=== PATIENT | female | born 1985 | race Caucasian/White ===

== ENCOUNTER 2017-07-28 16:55 | Emergency (ER) | payer OTHER ==
[~2017-07-28 16:55] MED LIST: MAGN100T PO; MELA3TAB14 PO; ONDA4TAB PO; ONDA4TAB97 PO; PROM-110 PO
--- NOTE | 2017-07-28 17:07 | ER Report ---
History and Physical Time Seen By MD: 17:07 Hx. of Stated Complaint: patient has been sick since yesterday with N/V; patient states she took some zofran and it did not help HPI/ROS chief concern: nausea/vomiting HPI: 31 y/o female presents with concern of nausea/vomiting and diarrhea x2 days. Reports she initially experienced nausea and diarrhea yesterday and overnight, followed by vomiting accompanied by diarrhea today. Reports limited fluid intake. Reports chills/sweats, body aches. Denies recent travel or eating new foods/new restaurants. Review of Systems: HENT: Denies nasal congestion, drainage Respiratory: Denies shortness of breath, dyspnea, cough CV: Denies chest pain, palpitations GI: Reports nausea, vomiting, diarrhea. Denies hematemesis, hematochezia, melena , mucus. Allergies: Coded Allergies: acetaminophen (Verified Allergy, Mild, "makes me sick", 07/14/15) hydrocodone (Verified Allergy, Mild, "makes me sick", 07/14/15) Uncoded Allergies: nipetiphine (Allergy, Mild, hives, 07/14/15) Home Meds Active Scripts Promethazine Hcl (PROMETHAZINE HCL) 25 Mg Tablet, 25 MG PO Q8H Y for NAUSEA/ VOMITING, #12 TAB Prov:JAZLYN VAZ [facility] [place] 07/28/17 Ondansetron (ZOFRAN ODT) 4 Mg Tab.rapdis, 4 MG PO Q6H Y for NAUSEA/VOMITING, # 20 TAB.MICKEY Prov:JAZLYN VAZ [facility] [place] 04/04/16 Reported Medications Melatonin (MELATONIN) 3 Mg Tab.rapdis, MG PO QHS 04/04/16 Discontinued Reported Medications Magnesium Amino Acid Chelate (MAGNESIUM) 100 Mg Tablet, 120 MG PO QDAY 04/04/16 Past Medical/Surgical History History of left ankle fracture; Reviewed Nurses Notes: Yes Old Medical Records Reviewed: No Hx Smoking: No Smoking Status: Never Smoker Hx Substance Use Disorder: No Constitutional Vital Sign - Last 24 Hours 07/28/17 07/28/17 07/28/17 07/28/17 17:00 17:01 17:25 17:30 Temp 99.8 Pulse 81 80 Resp 18 B/P (MAP) 125/77 (93) 125/77 106/63 (77) Pulse Ox 96 92 O2 Delivery Room Air 07/28/17 07/28/17 07/28/17 07/28/17 18:07 18:25 18:30 18:45 Pulse 74 70 74 B/P (MAP) 131/79 (96) 129/78 (95) Pulse Ox 97 97 96 07/28/17 07/28/17 07/28/17 07/28/17 19:00 19:15 19:30 19:45 Pulse 71 73 77 77 B/P (MAP) 113/75 (88) 115/65 (82) Pulse Ox 95 95 96 97 07/28/17 20:00 Pulse 75 B/P (MAP) 123/72 (89) Pulse Ox 96 Intake and Output 07/28/17 07/28/17 07/29/17 15:00 23:00 07:00 Intake Total 1000 ml Balance 1000 ml Physical Exam Physical Exam: General: Alert, orientedx3, in discomfort during exam, no acute respiratory distress. HENT: TMs pearly mckay, no bulging or fluid; canals clear with no erythema. Posterior pharynx pink. No lymphadenopathy Respiratory: clear to auscultation bilaterally. CV: regular rate and rhythm GI: bowel sounds normoactive all quadrants. Scattered tympany/dullness to percussion. Mild, diffuse tenderness to palpation. No hepatosplenomegaly. After obtaining thorough HPI and ROS, the following differentials were considered: viral gastroenteritis, dehydration, , intestinal obstruction. Medical Decision Making Data Points Result Diagram: 07/28/17 1727 07/28/17 1727 Laboratory Hematology Test 07/28/17 17:27 07/28/17 18:09 Red Blood Count 4.95 M/uL (4.17-5.56) Mean Corpuscular Volume 87.3 fL (80.0-96.0) Mean Corpuscular Hemoglobin 29.7 pg (26.0-33.0) Mean Corpuscular Hemoglobin Concent 34.0 g/dL (32.0-36.0) Red Cell Distribution Width 14.3 % (11.5-14.5) Mean Platelet Volume 9.3 fL (7.2-11.1) Neutrophils (%) (Auto) 79.4 % (39.4-72.5) Lymphocytes (%) (Auto) 10.0 % (17.6-49.6) Monocytes (%) (Auto) 9.9 % (4.1-12.4) Eosinophils (%) (Auto) 0.3 % (0.4-6.7) Basophils (%) (Auto) 0.4 % (0.3-1.4) Nucleated RBC Relative Count (auto) 0.1 /100WBC Neutrophils # (Auto) 6.8 K/uL (2.0-7.4) Lymphocytes # (Auto) 0.9 K/uL (1.3-3.6) Monocytes # (Auto) 0.9 K/uL (0.3-1.0) Eosinophils # (Auto) 0.0 K/uL (0.0-0.5) Basophils # (Auto) 0.0 K/uL (0.0-0.1) Nucleated RBC Absolute Count (auto) 0.01 K/uL Sodium Level 138 mmol/L (137-145) Potassium Level 4.1 mmol/L (3.5-5.0) Chloride Level 105 mmol/L (98-107) Carbon Dioxide Level 19 mmol/L (22-31) Blood Urea Nitrogen 12 mg/dl (7-18) Creatinine 0.90 mg/dl (0.52-1.04) Glomerular Filtration Rate Calc > 60.0 Random Glucose 91 mg/dl (75-110) Calcium Level 9.3 mg/dl (8.4-10.2) Total Bilirubin 0.4 mg/dl (0.2-1.3) Aspartate Amino Transf (AST/SGOT) 29 U/L (0-35) Alanine Aminotransferase (ALT/SGPT) 39 U/L (0-56) Alkaline Phosphatase 53 U/L (0-126) Total Protein 7.7 gm/dl (6.3-8.2) Albumin 4.3 g/dl (3.5-5.0) Amylase Level 68 U/L (0-110) Lipase 85 U/L (23-300) Urine Color Yellow Urine Clarity Clear Urine pH 5.0 pH (4.8-9.5) Urine Specific [place] 1.027 Urine Protein Negative mg/dL (NEGATIVE) Urine Glucose (UA) Negative mg/dL (NEGATIVE) Urine Ketones Trace mg/dL (NEGATIVE) Urine Blood Negative (NEGATIVE) Urine Nitrite Negative (NEGATIVE) Urine Bilirubin Negative (NEGATIVE) Urine Urobilinogen Negative mg/dL (0.2-1.9) Urine Leukocyte Esterase Negative (NEGATIVE) Urine RBC None /HPF (0-2/HPF) Urine WBC 1 /HPF (0-5/HPF) Urine Squamous Epithelial Cells Many /LPF (</=FEW) Urine Bacteria Negative /HPF (NONE-FEW) Urine Mucus Few /HPF (NONE-FEW) Chemistry Test 07/28/17 17:27 07/28/17 18:09 White Blood Count 8.6 k/uL (4.5-11.0) Red Blood Count 4.95 M/uL (4.17-5.56) Hemoglobin 14.7 g/dL (12.0-16.0) Hematocrit 43.2 % (34.0-47.0) Mean Corpuscular Volume 87.3 fL (80.0-96.0) Mean Corpuscular Hemoglobin 29.7 pg (26.0-33.0) Mean Corpuscular Hemoglobin Concent 34.0 g/dL (32.0-36.0) Red Cell Distribution Width 14.3 % (11.5-14.5) Platelet Count 213 K/uL (150-450) Mean Platelet Volume 9.3 fL (7.2-11.1) Neutrophils (%) (Auto) 79.4 % (39.4-72.5) Lymphocytes (%) (Auto) 10.0 % (17.6-49.6) Monocytes (%) (Auto) 9.9 % (4.1-12.4) Eosinophils (%) (Auto) 0.3 % (0.4-6.7) Basophils (%) (Auto) 0.4 % (0.3-1.4) Nucleated RBC Relative Count (auto) 0.1 /100WBC Neutrophils # (Auto) 6.8 K/uL (2.0-7.4) Lymphocytes # (Auto) 0.9 K/uL (1.3-3.6) Monocytes # (Auto) 0.9 K/uL (0.3-1.0) Eosinophils # (Auto) 0.0 K/uL (0.0-0.5) Basophils # (Auto) 0.0 K/uL (0.0-0.1) Nucleated RBC Absolute Count (auto) 0.01 K/uL Glomerular Filtration Rate Calc > 60.0 Calcium Level 9.3 mg/dl (8.4-10.2) Total Bilirubin 0.4 mg/dl (0.2-1.3) Aspartate Amino Transf (AST/SGOT) 29 U/L (0-35) Alanine Aminotransferase (ALT/SGPT) 39 U/L (0-56) Alkaline Phosphatase 53 U/L (0-126) Total Protein 7.7 gm/dl (6.3-8.2) Albumin 4.3 g/dl (3.5-5.0) Amylase Level 68 U/L (0-110) Lipase 85 U/L (23-300) Urine Color Yellow Urine Clarity Clear Urine pH 5.0 pH (4.8-9.5) Urine Specific [place] 1.027 Urine Protein Negative mg/dL (NEGATIVE) Urine Glucose (UA) Negative mg/dL (NEGATIVE) Urine Ketones Trace mg/dL (NEGATIVE) Urine Blood Negative (NEGATIVE) Urine Nitrite Negative (NEGATIVE) Urine Bilirubin Negative (NEGATIVE) Urine Urobilinogen Negative mg/dL (0.2-1.9) Urine Leukocyte Esterase Negative (NEGATIVE) Urine RBC None /HPF (0-2/HPF) Urine WBC 1 /HPF (0-5/HPF) Urine Squamous Epithelial Cells Many /LPF (</=FEW) Urine Bacteria Negative /HPF (NONE-FEW) Urine Mucus Few /HPF (NONE-FEW) Urinalysis Test 07/28/17 18:09 Urine Color Yellow Urine Clarity Clear Urine pH 5.0 pH (4.8-9.5) Urine Specific [place] 1.027 Urine Protein Negative mg/dL (NEGATIVE) Urine Glucose (UA) Negative mg/dL (NEGATIVE) Urine Ketones Trace mg/dL (NEGATIVE) Urine Blood Negative (NEGATIVE) Urine Nitrite Negative (NEGATIVE) Urine Bilirubin Negative (NEGATIVE) Urine Urobilinogen Negative mg/dL (0.2-1.9) Urine Leukocyte Esterase Negative (NEGATIVE) Urine RBC None /HPF (0-2/HPF) Urine WBC 1 /HPF (0-5/HPF) Urine Squamous Epithelial Cells Many /LPF (</=FEW) Urine Bacteria Negative /HPF (NONE-FEW) Urine Mucus Few /HPF (NONE-FEW) ED Course/Re-evaluation ED Course Patient admitted to exam room. Thorough HPI and ROS obtained. Physical exam revealed lungs clear to auscultation, heart sounds regular in rate and rhythm, bowel sounds normoactive all quadrants with minor discomfort to palpation. The following differentials were considered: viral gastroenteritis, dehydration, , intestinal obstruction. CBC and CMP were done to assess hemodynamic and electrolyte stability. 2 liters of normal saline were given for dehydration. Patient received phenergan for nausea. Labs showed normal levels. Results discussed with patient. Recommended rest, increased fluid intake, phenergan or zofran for nausea; follow up with primary care within next week. Patient verbalized understanding and agreed to plan. Decision to Disposition Date: Jul 28, 2017 Decision to Disposition Time: 20:10 Depart Departure Latest Vital Signs Vital Signs Date Time Temp Pulse Resp B/P (MAP) Pulse Ox O2 Delivery O2 Flow Rate FiO2 07/28/17 20:00 75 123/72 (89) 96 07/28/17 17:01 99.8 18 Room Air Impression: Primary Impression: Nausea Additional Impression: Dehydration Condition: Improved Disposition: HOME OR SELF-CARE New Scripts Promethazine Hcl (PROMETHAZINE HCL) 25 Mg Tablet 25 MG PO Q8H Y for NAUSEA/VOMITING, #12 TAB Prov: JAZLYN VAZ 07/28/17 Patient Instructions: Acute Nausea and Vomiting (ED) Additional Instructions: Recommend rest and increased fluid intake, as tolerated. Take pheneran and zofran as directed for nausea. Return to ED if symptoms worsen. Follow up with primary care within the next week. Problem Qualifiers JAZLYN VAZ Jul 28, 2017 17:07
[2017-07-28] MEDS ORDERED: NS(*) 0.9% 1000 ML BAG 1,000 ML IV ONE ×2 (17:36→18:50)
[2017-07-28 17:42] LABS: PLATELET COUNT, AUTOMATED 213 K/uL (150-450)
[2017-07-28] MEDS ORDERED: PROMETHAZINE 25 MG/ML 1 ML AMP IVP ONE (17:50)
[2017-07-28] MEDS ORDERED: ONDANSETRON 4 MG/2 ML VIAL IVP ONE (18:50)
[2017-07-28 20:00] VITALS: BP 123/72
[2017-07-28] MEDS ORDERED: PROM-110 PO (20:07)
== END 2017-07-28 20:14 | disposition home or self-care (01) ==
LOC: ER 17:10
DX: E86.0 Dehydration (principal); R11.2 Nausea with vomiting, unspecified
CPT/HCPCS: 81001; 82150; 83690; 85025; 96361; 96374; 96375; 99284; J2405; J2550; J7030; 82040; 82247; 82310; 82374; 82435; 82565; 82947; 84075; 84132; 84155; 84295; 84450; 84460; 84520

== ENCOUNTER 2018-06-07 22:21 | Emergency (ER) | payer OTHER ==
[2018-06-07] MEDS ORDERED: ONDANSETRON 4 MG/2 ML VIAL IVP ONE (22:25)
[2018-06-07] MEDS ORDERED: NS(*) 0.9% 1000 ML BAG 1,000 ML IV ONE ×2 (22:25→23:15)
[2018-06-07] MEDS ORDERED: ONDA4TAB9 PO (23:11)
[2018-06-07] MEDS ORDERED: PROM-110 PO (23:11)
--- NOTE | 2018-06-07 23:12 | ER Report ---
History and Physical Time Seen By MD: 22:23 Hx. of Stated Complaint: UNCONTROLLED VOMITING HPI/ROS CHIEF COMPLAINT: Vomiting and stomach cramps HISTORY OF PRESENT ILLNESS: 32-year-old female here with her son who is a patient for vomiting for the last 18 hours, unable to keep anything down. Mom's concern is getting dehydrated. She was sitting in the room with the patient began vomiting. She took Zofran and Phenergan at home prior to coming in with her son. The whole family has vomiting but no diarrhea. There are 2 female siblings with vomiting as well as dad. They likely all have gastroenteritis. Mom is here, appearing quite white and clammy. She decides to sign in and get hydrated while she is with her son. REVIEW OF SYSTEMS: Respiratory: No cough, no dyspnea. Cardiovascular: No chest pain, no palpitations. Gastrointestinal: As above Musculoskeletal: No back pain. Allergies: Coded Allergies: acetaminophen (Verified Allergy, Mild, "makes me sick", 06/07/18) hydrocodone (Verified Allergy, Mild, "makes me sick", 06/07/18) Uncoded Allergies: nipetiphine (Allergy, Mild, hives, 07/14/15) Home Meds Active Scripts Promethazine Hcl (PROMETHAZINE HCL) 25 Mg Tablet, 25 MG PO Q4H PRN for NAUSEA/VOMITING, #20 TAB Prov:TOMMIECARMINA Castaneda DO 06/07/18 Ondansetron 4 Mg Odt (ONDANSETRON 4 MG ODT) 4 Mg Tab.rapdis, 4 MG PO Q6H PRN for NAUSEA/VOMITING, #20 TAB Prov:TOMMIECOREYDivina Castaneda DO 06/07/18 Promethazine Hcl (PROMETHAZINE HCL) 25 Mg Tablet, 25 MG PO Q8H PRN for NAUSEA/VOMITING, #12 TAB Prov:JAZLYN VAZ [employer] 07/28/17 Ondansetron (ZOFRAN ODT) 4 Mg Tab.rapdis, 4 MG PO Q6H PRN for NAUSEA/VOMITING, #20 TAB.MICKEY Prov:JAZLYN VAZ [employer] 04/04/16 Reported Medications Melatonin (MELATONIN) 3 Mg Tab.rapdis, MG PO QHS 04/04/16 Hx Smoking: No Smoking Status: Never Smoker Hx Substance Use Disorder: No Constitutional Vital Sign - Last 24 Hours 1/2106/07/18 06/07/18 06/07/18 22:22 22:23 22:36 22:51 Temp 97.8 Pulse 75 68 71 Resp 18 B/P (MAP) 103/70 (81) 103/70 Pulse Ox 97 92 89 O2 Delivery Room Air 06/07/18 06/07/18 06/07/18 06/07/18 23:06 23:21 23:36 23:42 Pulse 78 76 74 B/P (MAP) 101/50 (67) Pulse Ox 91 92 90 06/07/18 06/08/18 23:51 00:06 Pulse 79 78 Pulse Ox 91 91 Intake and Output 06/07/18 06/07/18 06/08/18 15:00 23:00 07:00 Intake Total 1000 ml Balance 1000 ml Physical Exam General Appearance: The patient is alert, has no immediate need for airway protection and no current signs of toxicity. Moderate distress, white, pale, cool skin, vital signs stable, afebrile HEENT: Pupils equal and round no injection. Oropharynx with dry mucous membranes, mild erythema Respiratory: Chest is non tender, lungs are clear to auscultation. Cardiac: regular rate and rhythm Gastrointestinal: Abdomen is soft and non tender, no masses, bowel sounds hyperactive. Musculoskeletal: Neck: Neck is supple and non tender. No lymphadenopathy Extremities have full range of motion and are non tender. Skin: No rashes or lesions. DIFFERENTIAL DIAGNOSIS: After history and physical exam differential diagnosis was considered for abdominal pain including but not limited to appendicitis, cholecystitis, gastritis, gastroenteritis, stomach flu, food poisoning and urinary tract infection. Medical Decision Making ED Course/Re-evaluation Clinical Indication for ER IV: Hydration, IV Access ED Course Patient was admitted to an examination room. H&P was done. The differential diagnoses was considered. On clinical examination. Patient has stable vital signs but is quite pale and is repetitive vomiting. She is a peripheral IV established. She is given 2 L of normal saline. Zofran 8 mg IV. She feels much better. Her vomiting. His family controlled. She is discharged home with Zofran and Phenergan. She is advised clear liquid not for the next 24-48 hours. Decision to Disposition Date: Jun 07, 2018 Decision to Disposition Time: 23:10 Depart Departure Latest Vital Signs Vital Signs Date Time Temp Pulse Resp B/P (MAP) Pulse Ox O2 Delivery O2 Flow Rate FiO2 06/08/18 00:06 78 91 06/07/18 23:42 101/50 (67) 06/07/18 22:23 97.8 18 Room Air Impression: Primary Impression: Gastroenteritis Additional Impressions: Dehydration Vomiting Condition: Improved Disposition: HOME OR SELF-CARE New Scripts Promethazine Hcl (PROMETHAZINE HCL) 25 Mg Tablet 25 MG PO Q4H PRN for NAUSEA/VOMITING, #20 TAB Prov: CARMINA REILLY DO 06/07/18 Ondansetron 4 Mg Odt (ONDANSETRON 4 MG ODT) 4 Mg Tab.rapdis 4 MG PO Q6H PRN for NAUSEA/VOMITING, #20 TAB Prov: CARMINA REILLY DO 06/07/18 Patient Instructions: Clear Liquid Diet (ED), Gastroenteritis (ED) Additional Instructions: Follow clear liquid diet for 24-48 hours and advance to Renae diet, bananas, rice, applesauce and toast Use medication control vomiting as needed Follow-up with primary care if unimproved in 2-3 days Problem Qualifiers Additional Impressions: Vomiting Vomiting type: unspecified Vomiting Intractability: intractable Nausea presence: with nausea Qualified Codes: R11.2 - Nausea with vomiting, unspecified CARMINA REILLY DO Jun 07, 2018 23:12
[2018-06-07] MEDS ORDERED: KETOROLAC 30 MG/ML VIAL IVP ONE (23:25)
[2018-06-07 23:42] VITALS: BP 101/50
== END 2018-06-08 00:31 | disposition home or self-care (01) ==
LOC: ER 22:24
DX: K52.9 Noninfective gastroenteritis and colitis, unspecified (principal); E86.0 Dehydration
CPT/HCPCS: 96361; 96374; 96375; 99284; J1885; J2405; J7030

== ENCOUNTER 2018-07-09 01:47 | Day surgery (SDC) | payer OTHER ==
[~2018-07-09] VITALS: Ht 152.4 cm; Wt 64.0 kg
[~2018-07-09 01:47] MED LIST changes: +CHOL500051 PO; +LACT1CAP12 PO; +ONDA4TAB9 PO; +PREN-127 PO; +SCOP1PAT16 TD
[2018-07-09] MEDS ORDERED: SCOPOLAMINE 1.5 MG PATCH TD ONE (06:25)
[2018-07-09] MEDS ORDERED: MIDAZOLAM 2 MG/2 ML VIAL IVP PRN (06:30)
[2018-07-09] MEDS ORDERED: FAMOTIDINE 20 MG TAB PO ONE (06:30)
[2018-07-09] MEDS ORDERED: NORMOSOL R SOLN(*) 1000 ML BAG 1,000 ML IV PRN (06:30)
[2018-07-09] MEDS ORDERED: LIDOCAINE/SOD BICARB 8.4% SYR ID ONE (06:30)
[2018-07-09 06:41] LABS: PLATELET COUNT, AUTOMATED 257 K/uL (150-450)
[2018-07-09] MEDS ORDERED: LIDOCAINE MPF 1% 5 ML VIAL ONE (06:41)
[2018-07-09] MEDS ORDERED: METOCLOPRAMIDE 10 MG/2 ML SDV ONE (06:41)
[2018-07-09] MEDS ORDERED: ONDANSETRON 4 MG/2 ML VIAL ONE (06:41)
[2018-07-09] MEDS ORDERED: DEXAMETHASONE SOD 4 MG/ML VIAL ONE (06:41)
[2018-07-09] MEDS ORDERED: PROPOFOL EMUL(*) 10MG/ML 20 ML 20 ML ONE (06:41)
[2018-07-09] MEDS ORDERED: fentaNYL CITR 100 MCG/2 ML AMP ONE (06:43)
[2018-07-09 06:59] VITALS: BP 109/78
[2018-07-09] MEDS ORDERED: NS 0.9% 3000 ML IRRIGATION BAG IR ONE (08:00)
[2018-07-09] MEDS ORDERED: NS 0.9% IRRIGATION 1000ML PLCT IR ONE (08:02)
[2018-07-09] MEDS ORDERED: LR(*) 1000 ML BAG 1,000 ML IV ONE (08:07)
--- NOTE | 2018-07-09 08:14 | Post Operative Note ---
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
[2018-07-09] MEDS ORDERED: KETOROLAC 30 MG/ML VIAL ONE (08:21)
--- NOTE | 2018-07-09 08:32 | OPERATIVE REPORT 1 ---
EVENT DATE: July 09, 2018 SURGEON: Marvin Sandra MD ANESTHESIOLOGIST: Bakari Crowley MD ANESTHESIA: General LMA. PREOPERATIVE DIAGNOSIS 1. Abnormal findings on diagnostic imaging of other specified body structures. 2. Fertility testing. POSTOPERATIVE DIAGNOSIS 1. Abnormal findings on diagnostic imaging of other specified body structures. 2. Fertility testing. PROCEDURE PERFORMED Diagnostic hysteroscopy. ESTIMATED BLOOD LOSS Minimal. FLUIDS 1300 cc's IV crystalloid. FINDINGS Normal appearing endometrial cavity. Normal bilateral tubal ostia. Lush endometrium throughout the endometrial cavity. Normal multiparous cervix. DESCRIPTION OF PROCEDURE The patient was brought to the operating suite with IV running, placed in the dorsal supine position on the operating table. She was placed under general LMA anesthesia by Dr. Crowley and then moved to the dorsal lithotomy position. She was prepped and draped in the usual sterile fashion. A weighted speculum was placed in the vagina. The cervix was grasped on the anterior lip with a single- tooth tenaculum. The uterus was sounded to a depth of 9 cm and the cervix was then carefully dilated to a size 6 Hegar dilator. The diagnostic hysteroscope was assembled with normal saline insufflation media and the pump was primed. Once ready, it was passed through the cervix into the uterus and a moment was taken to clear any clots and to allow the image to clear. Once clear image was established, the bilateral tubal ostia were inspected and found to be normal in all respects. There was lush endometrium throughout the endometrial cavity with only significant differences noted from the dilation portion of the procedure. There was no visible fluid filling defects. No masses. No polyps. Otherwise, no deformities of the endometrial cavity. It was normal in shape and architecture. The endocervix was, in likewise fashion, normal in appearance and transitioned to the endometrium without abnormalities. The entire cavity was inspected and photo documented. Fluid was allowed to drain from the uterus. The procedure was terminated. All instruments were removed from the cervix and the vagina and the patient was awakened from general anesthesia in stable condition and taken to recovery. Sponge, laps, needle and instrument counts were all correct x3. MTDD
--- NOTE | 2018-07-09 08:35 | Short(Outpt) Discharge Summary ---
Discharge Summary Reason for Hosp/Final Diag: (1) Abnormal finding of diagnostic imaging Hospital Course & Plan: s/p diagnostic hysteroscopy (2) Fertility testing Departure Discharge to: Home, Self Care Discharge Instructions Home Meds Active Scripts Ondansetron 4 Mg Odt (ONDANSETRON 4 MG ODT) 4 Mg Tab.rapdis, 4 MG PO Q6H PRN for NAUSEA/VOMITING, #20 TAB Prov:CARMINA REILLY DO 06/07/18 Promethazine Hcl (PROMETHAZINE HCL) 25 Mg Tablet, 25 MG PO Q8H PRN for NAUSEA/VOMITING, #12 TAB Prov:JAZLYN VAZ [employer] 07/28/17 Reported Medications Scopolamine (Scopolamine) 1 Mg/3 Day Patch.td.3, 1.5 MG TD ONCE 07/08/18 Cholecalciferol (Vitamin D3) (Vitamin D) 5,000 Unit Capsule, 1 PO DAILY 07/07/18 Lactobacillus Combo No.11 (PROBIOTIC) 1 Each Cap.sprink, 1 CAP PO DAILY 07/07/18 Vits W-Ca,Fe,Fa(<1MG) ( VITAMINS) 1 Each Tablet, 1 EACH PO DAILY, TAB 07/07/18 Melatonin (MELATONIN) 3 Mg Tab.rapdis, MG PO QHS 04/04/16 Discontinued Scripts Promethazine Hcl (PROMETHAZINE HCL) 25 Mg Tablet, 25 MG PO Q4H PRN for NAUSEA/VOMITING, #20 TAB Prov:CARMINA REILLY DO 06/07/18 Ondansetron (ZOFRAN ODT) 4 Mg Tab.rapdis, 4 MG PO Q6H PRN for NAUSEA/VOMITING, #20 TAB.MICKEY Prov:JAZLYN VAZ [facility] 04/04/16 Follow up Referrals: POWDERED SUGAR SUPERVISOR - In Two Weeks @ [facility] with VERÓNICA LEVY MD Diet: Regular Activity: As Tolerated Copies to: VERÓNICA LEVY MD ; VERÓNICA LEVY MD Jul 09, 2018 08:35
[2018-07-09 09:00] VITALS: BP 110/72
[2018-07-09 09:20] VITALS: BP 113/73
[2018-07-09 09:25] VITALS: BP 114/81
== END 2018-07-09 09:00 | disposition home or self-care (01) ==
LOC: OR 01:47
PROVIDERS: ATTEND Obstetrics & Gynecology
DX: Z31.41 Encounter for fertility testing (principal)
CPT/HCPCS: 58555; 84703; 85025; J1100; J1885; J2001; J2405; J2704; J2765; J3010